=== PATIENT | female | born 1975 | race Caucasian/White ===

== ENCOUNTER 2020-05-15 01:41 | Emergency (ER) | payer OTHER ==
[2020-05-15] MEDS ORDERED: IBUPROFEN800 MG PO (03:57)
[2020-05-15] MEDS ORDERED: NORCO 5-325 TA1 EACH PO (03:57)
== END 2020-05-15 04:20 | disposition home or self-care (01) ==
LOC: FER 01:41
DX: S92.344A Nondisplaced fracture of fourth metatarsal bone, right foot, initial encounter for closed fracture (principal); E11.9 Type 2 diabetes mellitus without complications; I10 Essential (primary) hypertension; F17.200 Nicotine dependence, unspecified, uncomplicated; Z79.899 Other long term (current) drug therapy; Z79.84 Long term (current) use of oral hypoglycemic drugs; W00.0XXA Fall on same level due to ice and snow, initial encounter; Y92.410 Unspecified street and highway as the place of occurrence of the external cause
CPT/HCPCS: 73630